=== PATIENT | female | born 1985 | race Caucasian/White ===

== ENCOUNTER 2022-11-14 07:18 | Day surgery (SDC) | payer OTHER ==
[~2022-11-14] VITALS: Ht 152.4 cm; Wt 51.3 kg
[~2022-11-14 07:18] MED LIST: FLECAINIDE ACET50 MG PO; TOPROL XL50 M1 PO
== END 2022-11-14 19:30 | disposition home or self-care (01) ==
LOC: CIR.AMB 07:18
PROVIDERS: ATTEND Obstetrics & Gynecology Gynecologic Oncology
DX: R97.1 Elevated cancer antigen 125 [CA 125] (principal); R97.8 Other abnormal tumor markers; D48.7 Neoplasm of uncertain behavior of other specified sites; Z20.822 Contact with and (suspected) exposure to COVID-19; I10 Essential (primary) hypertension; Z88.6 Allergy status to analgesic agent

== ENCOUNTER 2024-09-19 15:02 | Emergency (ER) | payer OTHER ==
[~2024-09-19] VITALS: Ht 154.9 cm; Wt 59.0 kg
[2024-09-19] MEDS ORDERED: TENORMIN25 MG (15:50)
== END 2024-09-19 17:48 | disposition home or self-care (01) ==
LOC: ER 15:06
DX: M79.605 Pain in left leg (principal); Z88.6 Allergy status to analgesic agent; J45.909 Unspecified asthma, uncomplicated; R00.0 Tachycardia, unspecified